=== PATIENT | female | born 1940 | race Caucasian/White ===

== ENCOUNTER 2018-10-04 21:13 | Emergency (ER) | payer MEDICARE, BC ==
[~2018-10-04] VITALS: Ht 172.7 cm; Wt 70.0 kg
--- NOTE | 2018-10-04 21:39 | NUR ---
[facility]. REPORT FROM EMS. AFTER DINNER, PT WAS CONFUSED/HOT FLUSH ABOUT 5 MIN. PT HAS THE SAME EPISODE X 2 BEFORE. NO LOC. PT'S AOX4 HERE. NO HX OF STROKE. NEURO INTACT. RESPS EVEN AND UNLABORED. ALL MONITORS IN PLACE. 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 PT DENIES N/V/D AT THIS TIME. EDMD AT BEDSIDE TO ASSESS.
[2018-10-04 21:55] LABS: BASOPHILS # (AUTO) 0.04 x10^3/uL (0-0.1); BASOPHILS % (AUTO) 1 % (0-1); EOSINOPHILS # (AUTO) 0.37 x10^3/uL (0-0.4); EOSINOPHILS % (AUTO) 6 % (1-7); LYMPHOCYTES # (AUTO) 2.45 x10^3/uL (1-3.4); LYMPHOCYTES % (AUTO) 37 % (22-44); MD NO; MEAN CORPUSCULAR HEMOGLOBIN 30.8 pg (27.0-34.8); MEAN CORPUSCULAR HGB CONC 33.8 g/dL (32.4-35.8); MEAN CORPUSCULAR VOLUME 91.1 fL (80-100); MEAN PLATELET VOLUME 8.6 fL (7.4-10.4); MONOCYTES # (AUTO) 0.79 x10^3/uL (0.2-0.8); MONOCYTES % (AUTO) 12 % (2-9); NEUTROPHILS # (AUTO) 2.94 x10^3/uL (1.8-6.8); NEUTROPHILS % (AUTO) 45 % (42-75); PLATELET COUNT 187 x10^3/uL (130-400); RED BLOOD COUNT 4.23 x10^6/uL (3.82-5.3); RED CELL DISTRIBUTION WIDTH 14.2 % (9.6-15.2)
[2018-10-04 22:05] LABS: ALANINE AMINOTRANSFERASE 21 U/L (12-78); ALBUMIN 3.8 g/dL (3.4-5.0); ANION GAP 8 mmol/L (5-15); CALCIUM 9.3 mg/dL (8.5-10.1); CHLORIDE 111 mmol/L (98-107)
[2018-10-04 22:09] LABS: ALKALINE PHOSPHATASE 90 U/L (45-117); BILIRUBIN,TOTAL 0.2 mg/dL (0.2-1.0); TOTAL PROTEIN 7.2 g/dL (6.4-8.2); TROPONIN I < 0.015 ng/mL (0.000-0.045)
--- NOTE | 2018-10-04 22:31 | NUR ---
PT PASSED DYSPHAGIA SCREEN AT THIS TIME.
--- NOTE | 2018-10-04 22:38 | NUR ---
PT IS ABLE TO WALK WITHOUT DIZYNESS/HOT FLUSH. EDMD NOTIFIED.
[2018-10-04 22:46] VITALS: BP 141/66
--- NOTE | 2018-10-04 22:47 | NUR ---
PT GIVEN DC INSTRUCTIONS. PT AMB TO DC WITH STEADY GAIT. NO ACUTE DISTRESS AT DC.
== END 2018-10-04 22:48 | disposition home or self-care (01) ==
LOC: ED 21:52
DX: E86.0 Dehydration (principal); R40.4 Transient alteration of awareness
CPT/HCPCS: 36415; 70450; 80053; 84484; 85025; 93005; 99284

== ENCOUNTER 2019-08-28 18:46 | Emergency (ER) | payer MEDICARE, BC ==
[~2019-08-28] VITALS: Ht 170.2 cm; Wt 70.5 kg
--- NOTE | 2019-08-28 18:50 | NUR ---
PT TO ROOM 11 PER SYED. PER SYED AND , PT WAS SITTING AT THE DINNER TABLE, AND STARTED TO SHAKE A LITTLE, AND EYES ROLLED BACK INTO HER HEAD. INCIDENT WAS WITNESSED AND VERY BRIEF. PT HAD AWOKEN THIS MORNING STATING SHE DIDN'T FEEL GOOD, AND HER TOLD HER TO GO BACK TO BED FOR A WHILE. PT SLEPT ABOUT 3 MORE HOURS, AND FELT FINE WHEN SHE WOKE AGAIN. PT HAS BEEN ACTIVE ALL DAY, SKIPPED LUNCH, BUT DRANK A LARGE GLASS OF OJ. PT HAS DEMENTIA, BUT WAS ABLE TO ANSWER ALL QUESTIONS. GOWN PLACED ON, MONITOR ATTACHED AND CALL LIGHT GIVEN. WARM BLANKETS APPLIED. FAMILY AT BEDSIDE.
--- NOTE | 2019-08-28 19:55 | NUR ---
PT UP TO BR. UNABLE TO COLLECT URINE DUE TO URGENCY, PT SAT ON TOILET AND URINATED PRIOR TO RN GETTING HAT TO COLLECT. PT AMBULATED BACK TO BED AND MONITOR ATTACHED.
[2019-08-28 20:01] LABS: BASOPHILS # (AUTO) 0.04 x10^3/uL (0-0.1); BASOPHILS % (AUTO) 0 % (0-1); EOSINOPHILS # (AUTO) 0.07 x10^3/uL (0-0.4); EOSINOPHILS % (AUTO) 1 % (1-7); LYMPHOCYTES # (AUTO) 1.14 x10^3/uL (1-3.4); LYMPHOCYTES % (AUTO) 11 % (22-44); MD NO; MEAN CORPUSCULAR HEMOGLOBIN 30.9 pg (27.0-34.8); MEAN CORPUSCULAR HGB CONC 33.3 g/dL (32.4-35.8); MEAN CORPUSCULAR VOLUME 92.8 fL (80-100); MEAN PLATELET VOLUME 8.3 fL (7.4-10.4); MONOCYTES # (AUTO) 0.89 x10^3/uL (0.2-0.8); MONOCYTES % (AUTO) 9 % (2-9); NEUTROPHILS # (AUTO) 7.97 x10^3/uL (1.8-6.8); NEUTROPHILS % (AUTO) 79 % (42-75); PLATELET COUNT 166 x10^3/uL (130-400); RED BLOOD COUNT 4.09 x10^6/uL (3.82-5.3); RED CELL DISTRIBUTION WIDTH 14.4 % (9.6-15.2)
[2019-08-28 20:13] LABS: ALANINE AMINOTRANSFERASE 16 U/L (12-78); ALBUMIN 3.3 g/dL (3.4-5.0); ANION GAP 6 mmol/L (5-15); CALCIUM 8.9 mg/dL (8.5-10.1); CHLORIDE 112 mmol/L (98-107); CREATININE 0.93 mg/dL (0.55-1.02)
[2019-08-28 20:18] LABS: ALKALINE PHOSPHATASE 88 U/L (45-117); BILIRUBIN,TOTAL 0.5 mg/dL (0.2-1.0); TOTAL PROTEIN 6.9 g/dL (6.4-8.2); TROPONIN I < 0.015 ng/mL (0.000-0.045)
--- NOTE | 2019-08-28 20:55 | NUR ---
URINE HAS BEEN COLLECTED AND SENT TO LAB. BOLUS WILL BE GIVEN. FAMILY REMAINS AT BEDSIDE. WILL CONTINUE TO MONITOR.
[2019-08-28] MEDS ORDERED: SODIUM CHLORIDE 0.9%, 500ML IVBOLUS ONE (21:00)
--- NOTE | 2019-08-28 21:30 | NUR ---
AWAITING TEST RESULTS. FAMILY GETTING ANSY. WILL CONTINUE TO MONITOR.
[2019-08-28 21:40] LABS: MICROSCOPIC AUTO
[2019-08-28 21:42] LABS: CULTURE INDICATED? YES
[2019-08-28] MEDS ORDERED: CEFDINIR 300 MG CAPSULE PO ONE (22:00)
[2019-08-28] MEDS ORDERED: CEFDINIR 300 MG CAPSULE ONE (22:16)
--- NOTE | 2019-08-28 22:23 | NUR ---
DISCHARGE INSTRUCTIONS GIVEN TO PATIENT WITH ONE PRESCRIPTION AND ONE PO DOSE OF THE ANTIBIOTIC. PT AND FAMILY VERBALIZE UNDERSTANDING OF ALL INSTRUCTIONS AND FOLLOW UP. PT DRESSED AND AMBULATED OUT OF ED PER PEDIS WITH FAMILY.
[2019-08-28 22:32] VITALS: BP 132/81
== END 2019-08-28 22:36 | disposition home or self-care (01) ==
LOC: ED 20:44
DX: N30.00 Acute cystitis without hematuria (principal); R55 Syncope and collapse; I10 Essential (primary) hypertension; R94.31 Abnormal electrocardiogram [ECG] [EKG]
CPT/HCPCS: 36415; 70450; 71045; 80053; 81001; 84484; 85025; 87077; 87086; 87186; 93005; 96360; 99285; J7040